=== PATIENT | male | born 2005 | race Caucasian/White ===

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

== ENCOUNTER 2024-11-28 10:08 | Emergency (ER) | payer SELFPAY | END 2024-11-28 13:01 | disposition home or self-care (01) | LOC: MW.ED 10:08 | DX: L08.89 Other specified local infections of the skin and subcutaneous tissue (principal) | CPT/HCPCS: 99283 ==